=== PATIENT | female | born 1955 | race Caucasian/White ===

== ENCOUNTER → 2021-01-15 07:53 | Outpatient (CLI) | payer BC, SELFPAY ==
--- NOTE | 2021-01-15 08:00 | CT_ITS ---
STUDY: CTA CHEST REASON FOR EXAM: Female, 65 years old. MASS OF L BREAST,MASS OF AXILLARY TAIL OF L BREAST,ABN MAMM -- QUESTION MALIGNANCY RADIATION DOSAGE (If Supplied By Facility): CTDIvol = ( 16.30 ) mGy, DLP = ( 1834.72 ) mGycm TECHNIQUE: The examination was performed with the intravenous administration of Oral and amp; IV Readi-CAT and amp; 100mL Isovue-300. Post-processing of the angiographic images was performed, with multiplanar reformation and 3D reconstruction. Individualized dose optimization techniques were used for this CT. COMPARISON: None. FINDINGS: Enlargement of the left axillary lymph nodes. The largest lymph node measures 2.1 cm. There is diffuse thickening of the skin overlying the left breast. There is a 8.7 mm x 8.6 mm nodule in the medial aspect of the left breast. There is also evidence of a 2.6 cm x 2.2 cm mass in the central aspect of the left breast. Normal enhancement of the main pulmonary artery and right and left pulmonary arteries. Normal enhancement of the bilateral peripheral pulmonary arteries. There is no demonstrated pulmonary embolism. Normal thoracic aorta and visualized great vessels. There is no demonstrated aortic dissection. Normal heart and pericardium. There are visualized mediastinal lymph nodes, which are within normal size limits, and with normal morphology. Normal hilar regions. Normal visualized trachea and bronchi. The lungs are well expanded. Normal pulmonary parenchyma. Normal pleura. Normal chest wall structures. Normal osseous structures. Findings suggest multiple small hepatic cysts. Small hiatal hernia. CT/CTA Chest W/WO Contrast IMPRESSION: Left axillary adenopathy as well as left breast mass with diffuse skin thickening overlying the left breast. Electronically Signed: Josep Fuller MD at 9:20 EDT , Service support ,
--- NOTE | 2021-01-15 08:01 | CT_ITS ---
STUDY: CT ABDOMEN AND PELVIS WITH CONTRAST REASON FOR EXAM: Female, 65 years old. MASS OF L BREAST,MASS OF AXILLARY TAIL OF L BREAST,ABN MAMM -- LIVER LESION,QUESTION MALIGNANCY W/PREVIOUS MULTIPLE LIVER LESIONS RADIATION DOSAGE (If Supplied By Facility): CTDIvol = ( 16.30 ) mGy, DLP = ( 1834.72 ) mGycm TECHNIQUE: Transaxial images were obtained from the dome of the diaphragm to the symphysis pubis with oral contrast. Oral and amp; IV Readi-CAT and amp; 100mL Isovue-300 was administered. Sagittal and coronal images were reconstructed. Individualized dose optimization techniques were used for this CT. COMPARISON: None. FINDINGS: Diffuse skin thickening of the left breast. The visualized lung bases are unremarkable. The visualized portions of the heart are within normal limits. There are multiple tiny hypodense nodules scattered throughout the left and right lobe of the liver suggestive of tiny cysts. The largest is in the inferior aspect of the right lobe of the liver and measures 2.1 cm x 1.2 cm. Normal gallbladder and extrahepatic biliary system. Normal spleen. Normal pancreas. Normal bilateral adrenal glands. Normal right kidney. Normal left kidney. Mild degree of dilatation of the left ureter down to the insertion at the left ureterovesical junction. No obstructive calculus is seen at this time. There is a small hiatal hernia. Normal small intestine. There are scattered colonic diverticula consistent with diverticulosis. The appendix is visualized and appears normal. Normal abdominal aorta. Normal inferior vena cava. Normal retroperitoneum. Normal urinary bladder. Small benign appearing bilateral inguinal lymph nodes. There is a small umbilical hernia containing fat. Nature changes of the sacroiliac joints bilaterally. CT/Abdomen/Pelvis WITH Contrast IMPRESSION: Findings suggestive of multiple tiny cysts in the liver. Mild degree of dilatation of the left ureter down to the insertion at the left ureterovesical junction without an obstructive calculus. Scattered sigmoid diverticula. Diffuse skin thickening of the left breast. Electronically Signed: Josep Fuller MD at 9:16 EDT , Service support ,
[2021-01-15 08:15] LABS: CREATININE FINGERSTICK 0.7 mg/dL (0.55-1.02); EGFR FINGERSTICK > 60.0000 mL/min (>60)
== END ==
PROVIDERS: PCP Nurse Practitioner Family; Referring Provider Nurse Practitioner Family; Visit Provider Nurse Practitioner Family
DX: N63.20 Unspecified lump in the left breast, unspecified quadrant (principal); N63.32 Unspecified lump in axillary tail of the left breast; R92.8 Other abnormal and inconclusive findings on diagnostic imaging of breast
CPT/HCPCS: 71275; 74177; Q9967

== ENCOUNTER → 2021-02-09 07:42 | Outpatient (CLI) | payer BC, SELFPAY ==
[2021-02-03 09:33] VITALS: BMI 37.4
[2021-02-03 12:49] VITALS: BMI 37.4
--- NOTE | 2021-02-09 07:53 | NM_ITS ---
CLINICAL: 65-year-old female with reported history of carcinoma of the breast. WHOLE BODY 99m Tc MDP RADIONUCLIDE BONE SCINTIGRAPHY COMPARISON: CTA of the chest report 01/15/2021, CT of the abdomen-pelvis report 01/15/2021 FINDINGS: Following the intravenous administration of 25.4 mCi of 99m Tc MDP, whole body bone images reveal: 1. Increased radiopharmaceutical concentration is defined in the acromioclavicular and sternoclavicular compartments of both shoulders, glenohumeral compartment of the left shoulder, fifth lumbar vertebra posteriorly on the left and right, fifth thoracic vertebra posteriorly on the right, bilateral knees, the right ankle, the left wrist. 2. The remaining skeletal structures are scintigraphically unremarkable with normal-appearing renal images and urinary bladder activity identified. Subtle tracer concentration is defined in the apparent soft tissues of the bilateral anterior chest wall. Facilitated uptake is observed in the medial soft tissue compartment of the left lower extremity at the anatomic level of the mid tibial diaphysis which may represent an inflammatory process. Clinical examination is recommended. NM/Bone Scan Whole Body IMPRESSION: 1. The increase in radiopharmaceutical concentration identified in the thoracic and lumbar spine, bilateral shoulders, left wrist, knees bilaterally, the right ankle is most consistent with degenerative arthritis. 2. There is no definitive typical scintigraphic evidence of diffuse axial skeletal metastatic disease on the current examination. Electronically Signed: Jose Martin Wilson DO at 21:35 EDT Tel , Service support ,
--- NOTE | 2021-02-09 10:45 | ECHODONC_ITS ---
Reason For Study: Pre Chemo Procedure This was a 2D Doppler, Color Flow transthoracic echocardiogram. Myocardial strain analysis was performed in this exam to aid in the assessment of cardiac function. Exam performed in department. Left Ventricle Normal LV size. Left ventricular systolic function is normal. The estimated ejection fraction is 62 %. Stage 1 diastolic dysfunction. No regional wall motion abnormalities noted. Right Ventricle Normal RV size. Normal systolic function. Atria Normal left atrium. Normal right atrium. Mitral Valve Normal mitral valve. Tricuspid Valve Normal tricuspid valve. Mild tricuspid valve insufficiency. Pulmonary artery systolic pressure is 28 mmHg. Aortic Valve Normal aortic valve. Trisinus/trileaflet aortic valve. Pulmonic Valve Normal pulmonic valve. Great Vessels Normal aortic root. The pulmonary artery is normal size. Normal inferior vena cava. Pericardium/Pleural No pericardial effusion. MMode/2D Measurements & Calculations LVIDd: 4.4 cm IVSd: 0.85 cm Ao root diam: 3.4 cm LVIDs: 2.6 cm LVPWd: 1.0 cm LA dimension: 3.5 cm RVDd: 3.6 cm FS: 41.9 % LAV(MOD-bp): 51.2 ml LVAd ap4: 28.9 cm2 SV(MOD-sp4): 51.4 ml LAV(MOD-bp) Indexed: 24.1 ml/m2 LVLd ap4: 8.0 cm LAV(MOD-sp2): 55.7 ml EDV(MOD-sp4): 85.1 ml LAV(MOD-sp4): 41.0 ml EDV(sp4-el): 88.9 ml LVAs ap4: 16.5 cm2 LVLs ap4: 6.9 cm ESV(MOD-sp4): 33.7 ml ESV(sp4-el): 33.8 ml EF(MOD-sp4): 60.4 % EF(sp4-el): 62.0 % SV(sp4-el): 55.1 ml LA A4 area: 17.3 cm2 RA A4 area: 14.7 cm2 Time Measurements MV dec time: 0.19 sec Doppler Measurements & Calculations MV E max chon: 52.6 cm/sec Lat Peak E' Chon: 8.8 cm/sec Med Peak E' Chon: 10.5 cm/sec MV A max chon: 73.1 cm/sec E/E' lat: 5.9 E/E' med: 5.0 MV E/A: 0.72 MV V2 max: 77.6 cm/sec MV P1/2t max chon: 63.0 cm/sec Ao V2 max: 132.7 cm/sec MV max P.4 mmHg MV P1/2t: 88.3 msec Ao max P.0 mmHg MV V2 mean: 43.1 cm/sec MV mean P.89 mmHg MV dec slope: 209.0 cm/sec2 MV V2 VTI: 21.2 cm MVA(P1/2t): 2.5 cm2 LV V1 max: 114.0 cm/sec PA V2 max: 98.2 cm/sec TR max chon: 242.0 cm/sec LV V1 max P.2 mmHg TR max P.4 mmHg ECHO/ONC Echo Complete Interpretation Summary Normal LV size. Left ventricular systolic function is normal. The estimated ejection fraction is 62 %. Stage 1 diastolic dysfunction. Pulmonary artery systolic pressure is 28 mmHg. The global longitudinal strain is normal. The global longitudinal strain = -20. 8 % (normal). Ordering Physician: Rush Barbour Referring Physician: Jose Martin Huggins Performed By: Yariel Chino RCS
== END ==
PROVIDERS: PCP Nurse Practitioner Family; Referring Provider Internal Medicine Medical Oncology; Visit Provider Internal Medicine Medical Oncology
DX: Z01.818 Encounter for other preprocedural examination (principal); C50.812 Malignant neoplasm of overlapping sites of left female breast; Z17.0 Estrogen receptor positive status [ER+]
CPT/HCPCS: 78306; 93306; 93356; A9503

== ENCOUNTER 2021-06-19 16:39 | Observation (INO) | payer BC, SELFPAY ==
--- NOTE | 2021-06-15 09:11 | EKG12_ITS ---
Test Reason : PRE-OP Blood Pressure : / mmHG Vent. Rate : 082 BPM Atrial Rate : 082 BPM P-R Int : 168 ms QRS Dur : 092 ms QT Int : 368 ms P-R-T Axes : 066 028 065 degrees QTc Int : 429 ms Normal sinus rhythm Normal ECG Confirmed by KAMERON FARISA, INA ([id number]), news copy editor JOEY RUSSO ([id number]) on 06/15/2021 1:21:44 PM Referred By: Edwin Cheatham Confirmed By:INA MELO MD
[2021-06-15 09:55] LABS: Hematocrit 37.1 % (37-47); Hemoglobin 12.1 g/dL (12.0-15.0); Mean Corp Hgb Conc 32.6 g/dL (32-36); Mean Corpuscular Hgb 30.3 pg (27.0-32.0); Mean Corpuscular Volume 92.8 fL (81-99); Mean Platelet Vol. 10.9 fl (6.2-12.0); Platelet Count 204 K/mm3 (150-450); RBC Distribution Width CV 14.6 % (11.6-14.6); RBC Distribution Width SD 49.8 fl (35.1-43.9); White Blood Count 3.6 K/mm3 (4.4-11.0)
[2021-06-15 10:04] LABS: Prothrombin Time (Protime)PT. 12.7 SECONDS (11.7-14.9)
[2021-06-15 10:05] LABS: Partial Thromboplast Time 29.1 Seconds (24.1-36.2)
[2021-06-15 10:31] LABS: Thyroid Stim Hormone (TSH) 0.15 uIU/mL (0.358-3.74)
[2021-06-19] VITALS (11 sets, daily range): BP systolic 113–136; BP diastolic 49–85; PULSE 80–89; RESP 16–20; TEMP 36.1–36.6; O2SAT 93–100; BMI 36.6; BMI 36.7
--- NOTE | 2021-06-19 | IMM_PTH ---
PATIENT: TEAGAN JACKMAN LOC: MS3 U#:[id number] AGE/SX: 65/F ROOM: [facility] RE06/19/[address]: Dr. Edwin Cheatham MD : 1955 BED: 1 DIS: 06/20/2021 SPEC #: [id number] RECD: 06/23/21 14:43 STATUS: MARILYNN RESandra #: [id number] JUDITH: 06/19/21 00:[address]: Edwin Cheatham DEPT: IMMUNOHISTOCHEMISTRY RECD BY: Jennifer Santana ENTERED: 06/23/21 14:44 SP TYPE: IMMUNO OTHR DR: MD Jose Martin Huerta, [employer] PROFESSIONAL-C Tissues: A - Axillary lymph node, NOS Procedures: CK7 (add) Pankeratin (add) CK7 (initial) PHYSICIAN & INSTITUTION [address] [address] SPECIMEN INFORMATION: Tissue Source: A ? Left axillary lymph nodes Clinical Info: Malignant neoplasm of left breast Specimen Number: [id number] CPT code: 25634, 00215 x15 METHODOLOGY: Deparaffinized sections of prefer/formalin-fixed tissue or PAP/DQ stained slides are incubated with monoclonal/polyclonal antibodies/oligonucleotide probes. Localization is made via biotin free immunoperoxidase method. Appropriate controls are performed and reacted as expected. Results on target cell population are indicated in the following table: RESULTS: ANTIBODY / CLONE RESULT Block A1 CK7 (OV-TL12/30) positive, focal AE1-3 (AE1/AE3/PCK26) positive, focal Block A2 CK7 (OV-TL12/30) positive, focal AE1-3 (AE1/AE3/PCK26) positive, focal Block A3 CK7 (OV-TL12/30) negative AE1-3 (AE1/AE3/PCK26) negative Block A4 CK7 (OV-TL12/30) negative AE1-3 (AE1/AE3/PCK26) negative Block A5 CK7 (OV-TL12/30) positive AE1-3 (AE1/AE3/PCK26) positive Block A6 CK7 (OV-TL12/30) negative AE1-3 (AE1/AE3/PCK26) negative Block A7 CK7 (OV-TL12/30) negative AE1-3 (AE1/AE3/PCK26) negative Block A8 CK7 (OV-TL12/30) negative AE1-3 (AE1/AE3/PCK26) negative These tests were developed and their performance characteristics determined by [facility]. They may not have been cleared or approved by the U.S. Food and Drug Administration. The FDA has determined that such clearance or approval is not necessary. The above immunohistochemical/dualISH markers are ordered and reviewed by the Pathologist. INTERPRETATION: A. Left axillary lymph nodes, biopsy: Three out of seven lymph nodes with metastatic carcinoma Comment: Two lymph nodes contain micrometastatic foci of carcinoma ranging in size from 1.2 to 1.8 mm, respectively. The third positive lymph node contain a macro metastasis measuring 6 mm in greatest dimension. No extranodal extension of tumor is seen. AM:izabella 06/24/21
--- NOTE | 2021-06-19 09:30 | NM_ITS ---
PROCEDURE: NUCLEAR MEDICINE Injection [place] Node - LEFT breast(s). REASON FOR EXAM: Female, 65 years old. Right breast cancer. TECHNIQUE: [place] node localization using radionuclide methods of the LEFT breast(s) was performed following subcutaneous administration of 1.2 mCi of of sulfur colloid Tc-99m. FINDINGS: 1.2 mCi of technetium labeled sulfur colloid was injected subcutaneously in the lateral periareolar region of the left breast. NM/Lymph Node Injection Only IMPRESSION: 1.2 mCi of things labeled sulfur colloid was injected subcutaneously in the lateral periareolar region of the left breast for sentinel node imaging. Electronically Signed: Josep Fuller MD at 10:02 EST , Service support ,
[2021-06-19] MEDS: Lactated Ringers 1,000 ML 15 ML IV (09:59)
--- NOTE | 2021-06-19 10:17 | HP.PCM_ITS ---
History and Physical Date of Admission: 06/19/21 HISTORY AND PHYSICAL ? Pina Chris 1955 ? ? REFERRING PHYSICIAN: Self ? CHIEF COMPLAINT: Discuss Surgery ? HPI: The patient is a 65 year old female with diagnosis of left-sided breast cancer with metastatic disease to the lymph nodes. She had pretty orange type changes within the skin near the nipple as well. She underwent chemotherapy successfully and has had a significant change in her breast exam. She presents today for discussion of surgery. ? ? ? PAST MEDICAL HISTORY PAST MEDICAL HISTORY Diagnosis Date ? Breast cancer (HCC) 01/2021 ? Left Breast ? Disorder of thyroid ? ? ? PAST SURGICAL HISTORY PAST SURGICAL HISTORY Procedure Laterality Date ? BREAST BIOPSY CORE ? 04? ? Rt ? COLONOSCOP W/ OR W/O BRS SPEC ? 07/03/2007 ? Colonoscopy ? COLONOSCOP W/ OR W/O BRSH SPEC ? 03/09/2013 ? TUNNEL VAD W SUB Q PORT >=5 ? 02/11/2021 ? ? CURRENT MEDICATIONS Current Outpatient Medications Medication Sig ? oxyCODONE-acetaminophen (PERCOCET) 5-325 mg tablet Take 1 tablet by mouth every 6 hours as needed for pain. ? LEVOTHYROXINE 50 mcg tablet once daily. ? Aspirin 81 mg Tab Take 81 mg by mouth. ? MULTI-VITAMIN ORAL Take by mouth. ? ascorbic acid (VITAMIN C) 500 mg tablet Take 500 mg by mouth once daily. ? CALCIUM ORAL Take by mouth. ? No current facility-administered medications for this visit. ? ? ALLERGIES: Patient has no known allergies. ? PERSONAL HISTORY: SOCIAL HISTORY Social History ? Tobacco Use ? Smoking status: Never Smoker ? Smokeless tobacco: Never Used Substance Use Topics ? Alcohol use: No ? Drug use: No ? FAMILY HISTORY: FAMILY HISTORY FAMILY HISTORY Problem Relation Age of Onset ? Prostate Cancer Father ? ? Colon Cancer Brother ? ? REVIEW OF SYSTEMS: ?General:???The patient denies fatigue, denies weight loss, denies weight gain, denies feeling hot, and denies feelings of cold. ?Eyes: ?The patient denies glaucoma, denies eye injury/surgery, wears glasses or contacts. ?Ear/Nose/Throat: ?The patient denies allergies, denies hayfever, denies ear infections, and denies bloody noses. ?Cardiovascular: ?The patient denies chest pain, denies heart disease, denies high blood pressure,denies cardiac stent, denies prior heart attack, denies irregular heart beat, denies high cholesterol, ?denies poor circulation, denies heart failure, other cardiac issues, denies claudication, denies cold feet, denies peripheral arterial stent. ?Respiratory: ?The patient denies tuberculosis, denies pneumonia, denies frequent cough, denies pulmonary embolism, denies shortness of breath, and denies coughing up blood. ?Gastrointestinal: ?The patient denies difficulty swallowing, denies acid reflux, denies ulcers, denies vomiting, denies jaundice/hepatitis, denies gallbladder problems, denies black or tarry stools, denies hemorrhoids, denies bleeding from rectum, denies diverticulitis, denies constipation, denies diarrhea, denies loss of stool control, and denies hernias. ?Kidney/Bladder: ?The patient denies kidney stones, denies urine infections, and denies bloody urine. ?Skin: ?The patient denies a history of skin cancer, denies bleeding/changing moles, and denies a history of skin rash. ?Neurologic: ?The patient denies a history of epilepsy/convulsions, denies headaches, denies head/spinal injuries, and denies stroke/TIA. ?Psychiatric: ?The patient denies psychiatric medications, denies depression, and denies voices, denies substance abuse. ?Endocrine: ?The patient NOTES thyroid disorders, denies diabetes, and denies hormonal problems. ?Hematologic: ?The patient denies a history of bruising, denies bleeding, and denies anemia, denies blood clots. ?Infections: ?The patient denies a history of measles and mumps, denies rheumatic fever, and denies sexually transmitted diseases. ?Musculoskeletal: ?The patient denies back pain/injury, denies back problems, denies sciatica, denies knee/foot trouble, denies arthritis, or denies gout. ? ? When was patient's last Mammogram screening? 12/2020 ? ?Last Colonoscopy: ?2013 PHYSICAL EXAMINATION: ? General: The patient is 65 year old female, well nourished, well hydrated in no acute distress. The patient is oriented to time, place, and person. ? VITALS: Blood pressure 124/72, pulse 100, temperature 36.9 ?C (98.4 ?F), height 167.6 cm (5' 6), weight 103.9 kg (229 lb), SpO2 95 %. ? HEENT: Normal cephalic, ataumatic, pupils are equally round, sclera are anicteric, mucous membranes are moist, oropharynx is clear. Neck has no masses, asymmetry or lymphadenopathy. Thyroid is unremarkable. ? Respiratory: Clear to auscultation and percussion. Normal respiratory excursion and pattern. ? Cardiac: Examination is regular rate and rhythm. ? Abdominal exam: Soft, nontender, with no palpable masses. No hepatosplenomegaly. No palpable hernias. ? Rectal exam: exam deferred ? Extremities: no clubbing, cyanosis or edema. No adenopathy. ? Other: ? ? LABORATORY VALUES: As Noted ? RADIOLOGIC STUDIES: As Noted ? Assessment IMPRESSION: Malignant neoplasm of central portion of left female breast, unspecified estrogen receptor status (hcc) (primary encounter diagnosis) Breast cancer metastasized to axillary lymph node, left (hcc) ? PLAN: I discussed extensively with the patient that given the purulent changes around the nipple itself I think the best thing to do here is a mastectomy. I would be concerned that there is a possibility that we could leave unintentional disease within the skin itself. She has had a remarkable response to her chemotherapy. ? I am recommending we do a left-sided mastectomy with sentinel lymph node biopsy in the near future.The planned surgical procedure was discussed extensively with the patient. The risks, benefits, anticipated outcomes and possible complications were mentioned. My staff has also explained the procedure in understandable terms and the patient was given the option to take printed material concerning the planned procedure. The patient had the opportunity to ask questions concerning the planned procedure. The patient freely consents to the planned procedure. ? Diagnoses: (C50.112) Malignant neoplasm of central portion of left female breast, unspecified estrogen receptor status (HCC) (primary encounter diagnosis) (C50.912, C77.3) Breast cancer metastasized to axillary lymph node, left (HCC) ? ? ? Return to Clinic: The patient is instructed to follow-up with me 1 week post o peratively. ? LORENA (Procedure Consent) Procedure Criteria ? Procedure Criteria: Yes Elective The surgeon/proceduralist and patient have discussed in detail the risk of exposure to and/or potential harm posed by the COVID-19 virus with having a surgery/procedure at this time versus the risk of? delaying the surgery/procedure. It is not possible to know either the risk of delaying the surgery or procedure or chance of getting an infection with perfect accuracy, but a joint decision was made between the patient and the surgeon/proceduralist ?to proceed at this time with the scheduled surgery/pr ocedure as indicated on the consent form. ? ? ? Edwin Cheatham III, MD I have re-examined the patient. There are no clinical changes since date of exam.
[2021-06-19] MEDS: Cefazolin 2 GM in 0.9% Normal Saline 100 ML IV (11:55)
[2021-06-19] MEDS: Isosulfan Blue 1% 5 ML Vial (12:10)
--- NOTE | 2021-06-19 12:15 | AXNB_PTH ---
PATIENT: TEAGAN JACKMAN LOC: MS3 U#:[id number] AGE/SX: 65/F ROOM: [facility] RE06/19/[address]: Dr. Edwin Cheatham MD : 1955 BED: 1 DIS: 06/20/2021 SPEC #: [id number] RECD: 06/19/21 13:32 STATUS: MARILYNN AMARILYS #: [id number] JUDITH: 06/19/21 12:[address]: Edwin Cheatham DEPT: SURGICAL PATHOLOGY RECD BY: Jennifer Santana ENTERED: 06/19/21 15:13 SP TYPE: AX NODE BX OTHR DR: MD Jose Martin Huerta, ICU CLERK-C Tissues: A - Axillary lymph node, NOS B - Left breast, NOS Procedures: Frozen Section (charge) Surgery Specimen Level IV Surgery Specimen Level V HEADER OPERATION: Mastectomy, SLN biopsy, Radiotracer PRE-OP DIAGNOSIS: Malignant neoplasm of central portion of left breast; breast cancer metastasized to axillary lymph node, left TISSUE SUBMITTED: A ? Left axillary lymph nodes, FS at 1303, B ? Left breast FROZEN SECTION DIAGNOSIS A. Left axillary sentinel lymph nodes, biopsy: One out of seven lymph nodes with micrometastatic carcinoma measuring 1.8 mm in greatest dimension. AM:iraj 06/19/2021 MICROSCOPIC DIAGNOSIS A. Left axillary sentinel lymph nodes, biopsy: Three out of seven lymph nodes with metastatic carcinoma. See Comment. B. Left breast, radical mastectomy: Invasive ductal carcinoma. See synoptic report in comment. AM:iraj 06/23/2021 COMMENT A. Two lymph nodes contain micrometastatic carcinoma measuring 1.2 and 1.8 mm in greatest dimension, respectively. One lymph node contains macrometastatic carcinoma measuring 6 mm in greatest dimension. No extranodal extension of tumor is seen. Immunohistochemistry ([id number]) supports the above diagnosis. BREAST CANCER SUMMARY Procedure: Mastectomy Specimen: Type: Total breast Size: 27 x 22 x 6 cm Laterality: Left breast Invasive Tumor: Tumor site: Central portion of breast Tumor size: 3 x 2.5 x 2 cm Focality: Single focus of carcinoma Histologic type: Invasive ductal carcinoma. Histologic grade (Lingle grade): Glandular/tubular differentiation score: 3 Nuclear pleomorphism score: 3 Mitotic count score: 2 Overall grade: 2 (score of 7) Note: Patient is status post neoadjuvant chemotherapy. Ductal Carcinoma In Situ: Not identified Lobular Carcinoma In Situ: Not identified Tumor extension: Skin: Free of carcinoma Nipple: Invasive carcinoma is present in the deep dermis. Skeletal muscle: Not identified Margins: Distance of invasive carcinoma: 20 mm from posterior margin Lymph Nodes: Number of sentinel lymph nodes: 7 Total number of lymph nodes examined: 7 Number of lymph nodes involved by carcinoma: 3 of 7 (One with macrometastatic carcinoma measuring 6 mm and the other two with micrometastatic carcinoma measuring 1.2 &1.8 mm, respectively. Extranodal extension: Not identified See specimen ?A? Treatment Effect: Neoadjuvant chemotherapy. Lymphvascular invasion: Focally suspected Additional Pathologic Findings: Extensive calcifications, invasive carcinoma and fibrocystic change. Ancillary Studies: Previously performed on same tumor ([facility] [id number]) ER: >95%, strong intensity DC: 50%, moderate to strong intensity [id number]: Equivocal ([facility]). FISH negative/not amplified. Microcalcifications: Present and associated with invasive carcinoma. Clinical History: Mass of left breast. PATHOLOGIC STAGE: ypT2 N1a Mx The above summary is in compliance with [employer] (CAP) Cancer Protocol Checklist and [place] Joint Committee on Cancer (AJCC) Staging Manual, 8th Ed. Case has been reviewed in consultation with Dr. Little who concurs with the above diagnosis. IDC:[id number] MICROSCOPIC DESCRIPTION Slides are reviewed. GROSS DESCRIPTION A - Received fresh for frozen section consultation labeled with the patient's name is a specimen designated left axillary sentinel lymph nodes. The specimen consists of two irregular fragments of fried-yellow fibrofatty tissue. The smaller fragment measures 9 x 3 x 1 cm and the larger fragment measures 13 x 6 x 1.5 cm. Dissection reveals seven nodules resembling lymph nodes ranging in size from 1 to 4.5 cm. The nodules are submitted in their entirety for frozen section consultation in eight cassettes as follows: 1 - two lymph nodes, 2 - two lymph nodes, 3 - one lymph node, 4 - one lymph node, 5-8 - one lymph node, serially sectioned. / AM:iraj 06/22/21 B - Received in fixative is one container labeled with the patient's name and designated left breast. The specimen consists of a mastectomy measuring 27 x 22 x 6 cm and weighing 1010 gm. An ellipse of grossly unremarkable skin, nipple and areola is present on the anterior surface. This fragment of skin measures 24 x 10 cm. The specimen is differentially inked as follows: superior - blue, inferior - green and posterior - black. Serial sections reveal a firm, white-fried lesion measuring 3 x 2.5 x 2 cm. The mass is located 2 cm from its closest (posterior) margin of excision. The remainder of the breast parenchyma is mostly yellow and fatty and interrupted focally by dense white fibrous streaks. No other mass lesions are identified. Spool Sander sections are submitted are as follows: 1 - nipple and areola, 2 - superior, inferior and posterior margins, 3 - medial (black ink) and lateral (green-blue) margins, 4-7 - mass, 8 & 9 - additional mass, 10-12 - Spool Sander sections of uninvolved breast parenchyma adjacent to and away from mass. / AM:iraj 06/22/21 TC:0 CPT:
--- NOTE | 2021-06-19 13:25 | OP.PCM_ITS ---
Problems Associated Problem List Diagnoses (1) Malignant neoplasm of central portion of left female breast: (2) Malig andrew lymph-axilla/arm: Report of Operation Date of Procedure: 06/19/21 Pre-Operative Diagnosis: Cancer of the left breast with metastasis to the axilla (left) Post-Operative Diagnosis: Same Surgery/Procedure Performed:: 1. Injection of 5 cc of Lymphazurin blue 2. Left modified radical mastectomy Surgeon: Edwin Cheatham urgent care nurse practitioner: Braden Stringer Type of Anesthesia: General Anesthesiologist: Nakul Rivas Specimen's removed: 1. Left mastectomy 2. Level 1 axillary lymph node contents Drains: Two 15 round Carmine-Arora Estimated Blood Loss (mL): 100 cc Description of Procedure: Patient was brought into the operating room. Placed in the supine position. Under excellent general anesthetic the left breast was prepped with some alcohol 5 cc of Lymphazurin blue were injected circumareolar Oracio and the breast was massaged. The breast axillary area were then sterilely prepped and draped in the usual fashion. Elliptical incision was made around the nipple areolar complex. Flaps were created with use electrocautery and the PlasmaBlade. My borders medially where the sternum superior with the clavicle inferior with the rectus abdominis muscle. I was able to rotate the breast off of the pectoralis major muscle with use of electrocautery I used medium clips for any of the perforating vessels coming off of the muscle itself. I transected the breast laterally off the latissimus dorsi muscle and sent it to pathology for permanent sectioning. I reentered the clavipectoral fascia dissected down to I saw the axillary vein I inspected and saw no blue lymph nodes and I spent a lot of time trying to find 1 or 2 I also used the [employer] counter and was unable to identify anything that would light up. I made a determination after this that I was going to have to do a modified level 1-1/2 lymph node dissection which I was able to accomplish. Identified the long thoracic and thoracodorsal nerves. Was able to spare some of the intercostal brachial nerves as well. I sent these to pathology frozen section confirmed that they were lymph nodes. Irrigated out the wound. Inspected had good hemostasis. 2 drains were placed both 15 round Carmine-Arora's and they were sutured to the skin with 3-0 nylon. Skin was brought together with deep dermal stitches of 3-0 Vicryl Steri-Strips were a pplied, sterile dressings were applied and the patient tolerated the procedure well. Admit VTE Documentation VTE Present on Admission: No VTE Mechan Device Prophylaxis: SCD's VTE Pharm Prophylaxis ordered?: No Reason prophylaxis not ordered:: Procedure Not Indicated
[2021-06-19] MEDS: Bupivacaine Mpf 0.5% 30 ML VIAL (13:41)
[2021-06-19] MEDS: 0.9% Normal Saline 1,000 ML 75 ML IV (16:26)
[2021-06-19] MEDS: Acetaminophen 325 MG Tablet 650 MG PO ×2 (16:27→22:22)
[2021-06-19] MEDS: oxyCODONE 5 MG Tablet PO (17:38)
[2021-06-19] MEDS: Cefazolin 1 GM/50 ML BAG IV (22:21)
[2021-06-20 03:03] VITALS: BP 125/68; PULSE 80; RESP 18; TEMP 36.5; O2SAT 95
[2021-06-20] MEDS: 0.9% Normal Saline 1,000 ML 75 ML IV (03:06)
[2021-06-20 03:44] VITALS: BMI 36.7
[2021-06-20] MEDS: Acetaminophen 325 MG Tablet 650 MG PO (05:18)
[2021-06-20] MEDS: Cefazolin 1 GM/50 ML BAG IV (05:19)
[2021-06-20 07:45] VITALS: PULSE 91; RESP 18; TEMP 36.6; O2SAT 94; BMI 36.7
--- NOTE | 2021-06-20 08:11 | DCINST_ITS ---
Discharge Instructions Procedure General Surgery Diet Discharge Diet: Light diet - advance as tolerated (If you have questions about your diet instructions, please talk to your doctor.) Activity Discharge Activity: May Not Drive (for 1 week or while taking narcotic pain medicine.) May shower in (days): 1 Lifting Restrictions: 10 pounds Dressing / Incision Call your doctor if your incision/area has: Continuous Slow Oozing, Sudden Increased Bleeding, Increased Pain/ Swelling, Increased Redness and Foul Smelling Discharge Call your doctor if you observe: Fever of 101 or Higher Suture Line Care: Avoid Pulling/Pushing and Avoid Pinching/Bending Additional Dressing/Incision Instructions:: Change or remove dressing in 4 days. Leave steri-strips in place for 1 week. Follow Up Care Please Follow Up With: Johanna Frey PA-C When: Call office to schedule an appointment to be seen in about 10 days. Test Results: Test results from this visit will be discussed in further detail at your follow-up appointment, if applicable. Discharge Plan Admission Admit Date/Time: 06/19/21 16:39 Attending Provider: Edwin Cheatham Primary Care Provider: Jose Martin Huggins NP Consulting Providers: Gerald Roa Discharge Orders/Prescriptions Prescriptions: New oxycodone-acetaminophen [Endocet] 5-325 mg tablet 1 tab PO Q6H PRN (Reason: pain) 5 Days Qty: 20 RF: 0 Continued levothyroxine 50 mcg capsule 50 mcg PO DAILY RF: 0 lidocaine-prilocaine 2.5-2.5 % cream 1 applic topical ONCE PRN (Reason: Port access) 30 Days Qty: 30 RF: 2 ondansetron 8 mg tablet,disintegrating 8 mg PO Q8H PRN (Reason: nausea and vomiting) Qty: 30 RF: 2 prochlorperazine maleate 10 mg tablet 10 mg PO Q6H PRN (Reason: nausea and vomiting) Qty: 30 RF: 2 multivitamin Tablet 1 tab PO DAILY RF: 0 acetaminophen 325 mg Tablet 650 mg PO Q6H PRN (Reason: Pain) RF: 0 omega-3 fatty acids Capsule 1,000 mg PO DAILY RF: 0 Referrals / Follow Up: Jose Martin Huggins NP, JUNIOR COPYWRITER-C [Primary Care Provider] - Johanna Frey PA-C [PHYSICIAN PHARMACIST IN CHARGE OWNER] -
[2021-06-20 08:22] LABS: Absolute Lymphocyte Count 0.71 X10^3/uL (0.83-4.51); Absolute Neutrophil Count 3.5 X10^3/uL (2.0-7.7); Basophil# 0.02 X10^3/uL; Basophil% 0.4 % (0-1); Eosinophil# 0.14 X10^3/uL; Eosinophils% 2.9 % (0-5); Hematocrit 30.4 % (37-47); Lymphocyte # 0.71 X10^3/ul (0.83-4.51); Lymphocyte % 14.6 % (19-41); Mean Corp Hgb Conc 32.9 g/dL (32-36); Mean Corpuscular Hgb 30.7 pg (27.0-32.0); Mean Corpuscular Volume 93.3 fL (81-99); Monocyte# 0.49 X10^3/uL; Monocyte% 10.1 % (0-10); NRBC Flagged by Analyzer 0 % (0-5); Neutrophil # 3.48 X10^3/uL (2.7-7.7); Neutrophil % 71.8 % (47-70); Platelet Count 173 K/mm3 (150-450); RBC Distribution Width CV 14.2 % (11.6-14.6); RBC Distribution Width SD 48.9 fl (35.1-43.9); Red Blood Count 3.26 M/mm3 (4.2-5.4); White Blood Count 4.9 K/mm3 (4.4-11.0)
[2021-06-20 08:36] LABS: Anion Gap 5 (5-15); BUN 7 mg/dL (7-18); BUN/Creat Ratio 17.9 RATIO (10-20); Calcium,Total 7.9 mg/dL (8.5-10.1); Chloride 108 mmol/L (98-107); Creatinine, Serum 0.39 mg/dL (0.55-1.02); EST Glomerular Filtration Rate 175 mL/min (>60); Est Glom Filt Rate - Afr Amer 212 mL/min (>60); Estimated Creatinine Clearance 134.63 ml/min; Glucose 94 mg/dL (74-106); Potassium 3.8 mmol/L (3.5-5.1); Sodium Level 138 mmol/L (136-145)
== END 2021-06-20 09:22 | disposition home or self-care (01) ==
LOC: SDC 16:49 → MS3 16:49
PROVIDERS: Anesthesiology; Admitting Provider Surgery; PCP Nurse Practitioner Family; Referring Provider Surgery; Visit Provider Surgery
PROC: (CPT 19307; principal; 2021-06-19 12:00)
DX: C50.112 Malignant neoplasm of central portion of left female breast (principal); C77.3 Secondary and unspecified malignant neoplasm of axilla and upper limb lymph nodes; Z79.899 Other long term (current) drug therapy; Z79.890 Hormone replacement therapy; M19.90 Unspecified osteoarthritis, unspecified site; K21.9 Gastro-esophageal reflux disease without esophagitis; E03.9 Hypothyroidism, unspecified
CPT/HCPCS: 00404; 19307; 36415; 38792; 80048; 84443; 85025; 85027; 85610; 85730; 87426; 88305; 88307; 88331; 88341; 88342; 93005; 96361; 96365; 96366; 99218; A9541; C9803; J7030; J7120; G0378; J2405; Q9968